=== PATIENT | female | born 1995 | race Caucasian/White ===

== ENCOUNTER 2025-07-08 14:48 | Day surgery (SDC) | payer OTHER ==
[~2025-07-08 14:48] MED LIST: hydrALAZINE 20 MG/ML VIAL SLOW IVP PRN
[2025-07-08 15:11] VITALS: BMI 33.6
== END 2025-07-08 17:55 | disposition home or self-care (01) ==
LOC: CSHLD/OP 14:48
PROVIDERS: ATTEND Obstetrics & Gynecology
DX: O36.8130 Decreased fetal movements, third trimester, not applicable or unspecified (principal); Z3A.31 31 weeks gestation of pregnancy
CPT/HCPCS: 76819